=== PATIENT | male | born 1950 | race Caucasian/White ===

== ENCOUNTER 2017-06-30 06:21 | Emergency (ER) | payer OTHER ==
[~2017-06-30] VITALS: Ht 167.6 cm; Wt 74.3 kg
[2017-06-30] MEDS ORDERED: PERCOCET 5/31 TABLET PO (10:19)
[2017-06-30 11:29] VITALS: BP 142/79
== END 2017-06-30 11:30 | disposition home or self-care (01) ==
LOC: EME → EDBD 06:21 → EME 06:21
PROVIDERS: Emergency Medicine
PROC: 0PSJXZZ Reposition Left Radius, External Approach (ICD-10-PCS; principal; 2017-06-30)
DX: S52.122A Displaced fracture of head of left radius, initial encounter for closed fracture (principal); S53.125A Posterior dislocation of left ulnohumeral joint, initial encounter; W01.0XXA Fall on same level from slipping, tripping and stumbling without subsequent striking against object, initial encounter; Y92.002 Bathroom of unspecified non-institutional (private) residence as the place of occurrence of the external cause; E11.9 Type 2 diabetes mellitus without complications; Z79.84 Long term (current) use of oral hypoglycemic drugs; F17.200 Nicotine dependence, unspecified, uncomplicated
CPT/HCPCS: 73060; 73070; 73080; 73090; 82948; 99281; 99285; J3010